=== PATIENT | male | born 1980 | race Caucasian/White ===

== ENCOUNTER 2018-08-22 21:23 | Inpatient (IN) | payer SELFPAY ==
--- NOTE | 2018-08-22 21:42 | PDOC ---
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 The past last had alcohol this AM. He normally drinks beer and rum and cannot provide a full history of how much he drinks. He admits to some nausea at bedside. Per EMS patient wsa hypoglycemic to 33, given glucose and up to 66 He denies chest pain, shortness of breath, abdominal pain, recent fever or illness. He has no other complaints at bedside. Cylinder Devalver: [id number] Past History - Past Medical History Allergies/Adverse Reactions: Allergies Allergy/AdvReac Type Severity Reaction Status Date / Time No Known Allergies Allergy Verified 08/22/18 21:40 Home Medications: Ambulatory Orders Aspirin [ASA -] 81 mg PO DAILY tab.chew 08/24/18 levETIRAcetam [Keppra -] 250 mg PO BID tablet 08/24/18 - Suicide/Smoking/Psychosocial Hx Smoking History: Unknown if ever smoked Have you smoked in the past 12 months: No Information on smoking cessation initiated: No Hx Alcohol Use: Yes Drug/Substance Use Hx: No (UNKNOWN) Review of Systems - Review of Systems Able to Perform ROS?: Yes Is the patient limited Malay proficient: No Constitutional: No: Chills, Diaphoresis, Fever HEENTM: No: Blurred Vision, Tinnitus Respiratory: No: Cough, Orthopnea, Shortness of Breath Cardiac (ROS): Yes: Lightheadedness. No: Chest Pain, Palpitations, Syncope ABD/GI: Yes: Nausea. No: Constipated, Diarrhea, Vomiting : No: Burning, Dysuria, Hematuria Musculoskeletal: No: Back Pain, Muscle Pain, Muscle Weakness Neurological: No: Headache, Numbness, Tingling *Physical Exam - Vital Signs Last Vital Signs Temp Pulse Resp BP Pulse Ox 97.6 F 93 H 20 126/73 98 08/22/18 21:40 08/22/18 21:40 08/22/18 21:40 08/22/18 21:40 08/22/18 21:40 - Physical Exam Comments: 08/22/18 22:55 GENERAL: AOx3, tired, tremulous appearing. HEAD: No signs of trauma, normocephalic, atraumatic EYES: EOMI, mild scleral icterus, ENT: oropharynx clear without exudates. Moist mucosa, tongue tremors NECK: Normal ROM, supple LUNGS: No distress, speaks full sentences, clear to auscultation bilaterally HEART: Regular rate and rhythm, normal S1 and S2, no murmurs, rubs or gallops, peripheral pulses normal and equal bilaterally. ABDOMEN: Soft, nontender, normoactive bowel sounds. No guarding, no rebound. No masses EXTREMITIES : Normal inspection, Normal range of motion, no edema. No clubbing or cyanosis. 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 The past last had alcohol this AM. He normally drinks beer and rum and cannot provide a full history of how much he drinks. He admits to some nausea at bedside. ED Course: Patient with likely alcohol withdrawal and hypoglycemia possible seizure, however descrbed as dizzy spell similar to prior episodes Discussed patient detoxing and going to rehab, the patient has gone to rehab before and does not desire to rehab current;y cbc, cmp, head CT banana bag, librium juice given for hypoglycemia en route EKG: normal sinus rhythm HR 83, no interval abnormalities, narrow QRS, ST and T wave segments and morphology normal. 08/23/18 01:32 labs with glucose of 61 juice given and 12.5gm d50 given IV second episode of hypoglycemia likely will need admission for etoh withdrawal 08/23/18 01:[address] and cervical c spine - negative 08/25/18 12:24 Patient discussed with mecdicine team who accetps patient *DC/Admit/Observation/Transfer Diagnosis at time of Disposition: Alcohol withdrawal - Discharge Dispostion Condition at time of disposition: Improved Decision to Admit order: Yes - Referrals - Patient Instructions - Post Discharge Activity
[2018-08-22] MEDS ORDERED: chlordiazePOXIDE HCL 25 MG CAPSULE PO ONE (21:43)
[2018-08-22] MEDS ORDERED: FOLIC ACID INJECTION - 1 MG, THIAMINE HCL 100 MG, MULTIVIT INJECTION ADULT 10 ML in SOD... IVPB ONE (21:43)
[2018-08-22] MEDS ORDERED: chlordiazePOXIDE HCL 25 MG CAPSULE ONE (22:56)
--- NOTE | 2018-08-22 23:47 | PDOC ---
Attending Attestation - HPI HPI: The patient is a 37 year old male (daily EtOh yser), with a significant PMH of alcoholism, chronic episodes of dizzy spells, withdrawal (last episode was 2 months ago), seizures who presents to the emergency department today s/p one episode of dizziness and nausea earlier today. 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 He admits to alcohol consumption earlier this morning. Patient notes he typically drinks rum and/or beer, but cannot dictate his consumption history. He endorses mild nausea while in the ED. As per EMS, patient was found post-ictal and hypoglycemic (at 33). He was given glucose prior to arrival (brought up to 66). HPI is limited secondary to patient being a poor historian. Clip Wrapper: [id number] The patient denies chest pain, shortness of breath, headache and dizziness. Denies fever, chills, vomit, diarrhea and constipation. Denies dysuria, frequency, urgency and hematuria. Allergies: NKA Past surgical history: None reported Social history: Daily EtOH user (1/5 per day) 08/22/18 23:50 - Physicial Exam PE: GENERAL: +Poor historian. +Tremulous. +Jaundice. +Disheveled, no external signs of trauma. Awake, alert, in no acute distress HEAD: No signs of trauma EYES: +Scleritic icterus. PERRLA, EOMI, conjunctiva clear ENT: +Mild tongue fasciculations. +Yellowing of the bases of the mouth. Auricles normal inspection, hearing grossly normal, nares patent, oropharynx clear without exudates. Moist mucosa NECK: Normal ROM, supple, no lymphadenopathy, JVD, or masses LUNGS: Breath sounds equal, clear to auscultation bilaterally. No wheezes, and no crackles HEART: Regular rate and rhythm, normal S1 and S2, no murmurs, rubs or gallops ABDOMEN: +Couldnt palpate liver below the border of the ribs. Soft, nontender, normoactive bowel sounds. No guarding, no rebound. No masses EXTREMITIES: Normal range of motion, no edema. No clubbing or cyanosis. No cords, erythema, or tenderness NEUROLOGICAL: Cranial nerves II through XII grossly intact. Normal speech, normal gait SKIN: +Jaundice. Warm, Dry, normal turgor, no rashes or lesions noted. 08/22/18 23:50 - Medical Decision Making EXAM: CT Head without contrast Impression: No acute brain parenchymal abnormality. No hemorhage, mass or acute territorial infarct. Minimal atrophy. Chronic lacunar infarct left basal ganglia. Minimal mucoperiosteal thickening paranasal sinuses. Visualized mastoid air cells clear. Reported by: Dee Dee Macias MD. 08/23/2018 01:13 Documentation prepared by DANITZA Lucia, acting as medical chemist for Torrie Cannon DO. 08/23/18 01:24 <Francisca Osullivan - Last Filed: 08/23/18 01:24> - Resident Resident Name: Lizet Roy - ED Attending Attestation I have performed the following: I have examined & evaluated the patient, The case was reviewed & discussed with the resident, I agree w/resident's findings & plan, Exceptions are as noted - Medical Decision Making 08/22/18 23:42 I, Dr. Torrie Cannon, , attest that this document has been prepared under my direction and personally reviewed by me in its entirety. I further attest, that it accurately reflects all work, treatment, procedures and medical decision -making performed by me. 08/22/18 23:42 a/p: 37yo male biba after being found with loc and a low glucose -pt with daily etoh use, hx of vodka 1 fifth per day -last drink was yesterday morning -pt tremulous and mild tongue fasciculations -pt also mildly jaundiced -will send labs, ekg, cxr, head ct, librium, pt with mild alcohol withdrawal and an episode of LOC today vs seizure from etoh withdrawal 08/23/18 01:[address] on head [address], no acute findings 08/23/18 01:31 pt still tremulous repeat glucose 61 given juice and 1/2 amp d50 2nd episode of hypoglycemia today denies taking any meds or insulin 08/23/18 01:32 microblog sent to [facility] for admission for etoh withdrawal <Torrie Cannon - Last Filed: 08/23/18 01:32> Heart Score/ECG Review - ECG Intrepretation Comment:: 08/22/18 23:42 sinus at 83, nl axis, nl interval, no acute st/t wave findings <Torrie Cannon - Last Filed: 08/23/18 01:32>
[2018-08-23 00:36] LABS: BASO % 0.4 % (0-2.0); HEMATOCRIT 31.3 % (35.4-49); HEMOGLOBIN 10.3 GM/dL (11.7-16.9); LYMPH % 9.3 % (8-40); MCH 29.4 pg (25.7-33.7); MCHC 32.9 g/dl (32.0-35.9); MEAN CELL VOLUME 89.4 fl (80-96); MEAN PLT VOLUME 7.5 fl (7.5-11.1); MONO % 10.6 % (3.8-10.2); NEUT % 79.7 % (42.8-82.8); PLATELET COUNT 152 K/MM3 (134-434); RDW 17.1 % (11.9-15.9); WHITE BLOOD COUNT 5.9 K/mm3 (4.0-10.0)
[2018-08-23 01:14] LABS: ALBUMIN 3.9 g/dl (3.4-5.0); ALK PHOS 92 U/L (45-117); ANION GAP 11 MMOL/L (8-16); BILIRUBIN,TOTAL 0.7 mg/dL (0.2-1); BLOOD UREA NITROGEN 13 mg/dL (7-18); CALCIUM 8.3 mg/dL (8.5-10.1); CHLORIDE 98 mmol/L (98-107); CO2 22 mmol/L (21-32); CREATININE 0.6 mg/dL (0.55-1.3); GLUCOSE,RANDOM 61 mg/dL (74-106); POTASSIUM 3.9 mmol/L (3.5-5.1); SGOT/AST 239 U/L (15-37); SGPT/ALT 87 U/L (13-61); SODIUM 131 mmol/L (136-145); TOT PROT 7.4 g/dl (6.4-8.2)
[2018-08-23] MEDS ORDERED: DEXTROSE 50%-WATER - 25 GM/50 ML VIAL IVPUSH ONE ×2 (01:25)
[2018-08-23] MEDS ORDERED: DEXTROSE 50%-WATER - 25 GM/50 ML VIAL ONE (01:27)
--- NOTE | 2018-08-23 01:36 | HP ---
CHIEF COMPLAINT: LOC PCP:none HISTORY OF PRESENT ILLNESS: The patient is a 37 year old male (daily EtOh yser), with a significant PMH of alcoholism, chronic episodes of dizzy spells, withdrawal (last episode was 3 months ago), seizures who presents to the emergency department today s/p one episode of dizziness and nausea earlier today. 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 He admits to alcohol consumption earlier this morning. Patient notes he typically drinks rum and/or beer, but cannot dictate his consumption history. He endorses mild nausea while in the ED. As per EMS, patient was found post-ictal and hypoglycemic (at 33). He was given glucose prior to arrival (brought up to 66). HPI is limited secondary to patient being a poor historian. The patient denies chest pain, shortness of breath, headache and dizziness. Denies fever, chills, vomit, diarrhea and constipation. reports some times buring sensation when he pass urine reports anxiety regarding his job and his family he lives with friend he sleeps with mouth open ER course was notable for: (1)cbc, cmp (2)Head CT (3) Recent Travel: denies PAST MEDICAL HISTORY: he mentioned HTN and DM but he has never been on any ,edsand he done have PCP PAST SURGICAL HISTORY: NOne Social History: Smoking:one cigaret aday for one year ([facility] ) Alcohol:daily beer and vodka 1/2 Pint Drugs: denies Family History:Asthma Allergies No Known Allergies Allergy (Verified 08/22/18 21:40) HOME MEDICATIONS: REVIEW OF SYSTEMS CONSTITUTIONAL: Absent: fever, chills, diaphoresis, generalized weakness, malaise, loss of appetite, weight change HEENT: Absent: rhinorrhea, nasal congestion, throat pain, throat swelling, difficulty swallowing, mouth swelling, ear pain, eye pain, visual changes CARDIOVASCULAR: Absent: chest pain, syncope, palpitations, irregular heart rate, lightheadedness , peripheral edema RESPIRATORY: Absent: cough, shortness of breath, dyspnea with exertion, orthopnea, wheezing, stridor, hemoptysis GASTROINTESTINAL: Absent: abdominal pain, abdominal distension, nausea, vomiting, diarrhea, constipation, melena, hematochezia GENITOURINARY: Absent: dysuria, frequency, urgency, hesitancy, hematuria, flank pain, genital pain MUSCULOSKELETAL: Absent: myalgia, arthralgia, joint swelling, back pain, neck pain SKIN: Absent: rash, itching, pallor HEMATOLOGIC/IMMUNOLOGIC: Absent: easy bleeding, easy bruising, lymphadenopathy, frequent infections ENDOCRINE: Absent: unexplained weight gain, unexplained weight loss, heat intolerance, cold intolerance NEUROLOGIC: Absent: headache, focal weakness or paresthesias, dizziness, unsteady gait, seizure, mental status changes, bladder or bowel incontinence PSYCHIATRIC: Absent: anxiety, depression, suicidal or homicidal ideation, hallucinations. PHYSICAL EXAMINATION Vital Signs - 24 hr 08/22/18 21:40 Temperature 97.6 F Pulse Rate 93 H Respiratory 20 Rate Blood Pressure 126/73 O2 Sat by Pulse 98 Oximetry (%) GENERAL: AAOx3 in NAD , flushed face HEAD: NC/AT EYES: EOMI, Conjunctiva clear, ENT: dry mucous membrane NECK: Supple, no JVD LUNGS: CTA B/L, no crackles no wheezing no accessory muscle use. HEART: RRR, NSR, normal s1, s2, no M/R/G ABDOMEN: Soft, ND, NT, +BS 4 Q, no CVA Tenderness LOWER EXTREMITIES: no edema, +2DP pulse, NEUROLOGICAL: No focal deficit. Normal speech. gait not observed.hand tremor , sensation intact , strength 5/5 upper and lower ext proximal and distal PSYCHIATRIC: Cooperative. Good eye contact. Appropriate mood and affect. SKIN: Warm, dry, Laboratory Results - last 24 hr 08/23/18 08/23/18 00:04 00:04 WBC 5.9 RBC 3.50 L Hgb 10.3 L Hct 31.3 L MCV 89.4 MCH 29.4 MCHC 32.9 RDW 17.1 H Plt Count 152 MPV 7.5 Absolute Neuts (auto) 4.7 Neutrophils % 79.7 Lymphocytes % 9.3 Monocytes % 10.6 H Eosinophils % 0.0 Basophils % 0.4 Nucleated RBC % 0 Sodium 131 L Potassium 3.9 Chloride 98 Carbon Dioxide 22 Anion Gap 11 BUN 13 Creatinine 0.6 Creat Clearance w eGFR 149.99 Random Glucose 61 L Calcium 8.3 L Total Bilirubin 0.7 AST 239 H ALT 87 H Alkaline Phosphatase 92 Total Protein 7.4 Albumin 3.9 CBC, BMP 08/23/18 00:04 08/23/18 00:04 ASSESSMENT/PLAN: 37 year old male with no pmhx presented with dizziness and loc admitted for alcohol abuse and for syncope work up as this is second episode in last 3 months # Syncope likley due to alcohol abuse vs another etiology # Alcoholic dependence /withdrwal ciwa 10 #normocytic normochromic Anemia likely due to alcohol abuse # Hyponatremia # Hypoglycemia due to alcohol and low intake /R.O DM # HTN???never measured and never on meds will monitor #tansaminitis 2/2 Alcoholic abuse ASt> ALt more than 2:1 trend # R.o rhabdomyolyis CK 1200 trend , IV fluids NS @ 125 CC/hr plan * will work him for syncope , monitor in tele to r.o arrhythmia , trop, EKG NSR , Head Ct without contrast , Echo in Am , Carotid doppler , thsi is 2nd episode in 3 month last visit was to [facility] for same reason * pt is heavy drinkr , drink every day, 5 beers and 1/2 pont of Vodka , last drink yesterday , pt has hand tremor from withdrawal and flush face * Thiamin , folic acid , Banan bag , Ativan protocol instead of libirium Protocol as pt has transminitis , addictions counselor about alcohol abstinence * NS @ 100 CC/hr * D5 was given in ED due to hypoglycemia due to alcohol, , continue to monitor BGM, feed pt , D50 if needed , A1c as pt claimed he has DM but not on any meds * Anemia likely due to alcohol abuse , follow results B12 , folic acid , FE, TIBC , And Ferretin , monitor H/H , no active bleeding * Fall precautions , monitor for withdrawal symptoms # FEN * banana bag , NS @ 125 CC/hr * monitor lytes * regular diet # Proph * SCDS, Lovenoc 40 SQ daily * PPI 20 daily #Dispo * Tele inpatient # Full code Visit type - Emergency Visit Emergency Visit: Yes ED Registration Date: 08/23/18 Care time: The patient presented to the Emergency Department on the above date and was hospitalized for further evaluation of their emergent condition. - New Patient This patient is new to me today: Yes Date on this admission: 08/23/18 - Critical Care Critical Care patient: No
--- NOTE | 2018-08-23 02:05 | PN ---
Teaching Attending Note Name of Resident: Eligio Priest ATTENDING PHYSICIAN STATEMENT I saw and evaluated the patient. I reviewed the resident's note and discussed the case with the resident. I agree with the resident's findings and plan as documented. 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 May have passed out, but is not sure. He last had alcohol this AM. He normally drinks beer and rum and cannot provide a full history of how much he drinks. He admits to some nausea at bedside. Per EMS patient was hypoglycemic to 33, given glucose and it went up to 66. May have also passed out one other time last year. He denies chest pain, shortness of breath, abdominal pain, recent fever or illness. Denies use of illicit drugs. OBJECTIVE: Alert and face is flushed and he is tremulous Vital Signs Period Temp Pulse Resp BP Sys/Antoine Pulse Ox Last 24 Hr 97.6 F 93 20 126/73 98 HEENT: No Jaundice, eye redness or discharge, PERRLA, EOMI. Normocephalic, atraumatic. External ears are normal and hearing is grossly intact. No nasal discharge. Neck: Supple, nontender. No palpable adenopathy or thyromegaly. No JVD Chest: Good effort. Clear to auscultation and percussion. Heart: Regular. No S3, rub or murmur Abdomen: Not distended, soft, nontender and no HSM. No rebound or guarding. Normal bowel sounds. Ext: Peripheral pulses intact. No leg edema. Skin: Warm and dry. No petechiae, rash or ecchymosis. Neuro: Alert. Oriented x3. Tremulous. CN 2-12 grossly intact. Sensation grossly intact in all four extremities and DTR are symmetric. Psych: Appropriate mood and affect. Poor insight. Current Medications Generic Name Dose Route Start Last Admin Trade Name Freq PRN Reason Stop Dose Admin Chlordiazepoxide HCl 10 mg 08/25/18 21:00 Librium - PO 08/26/18 21:00 Q12H PRN Signs/symptoms of Withdrawal Chlordiazepoxide HCl 10 mg 08/23/18 03:37 Librium - PO 08/25/18 21:00 Q8H PRN Signs/symptoms of Withdrawal Chlordiazepoxide HCl 25 mg 08/23/18 21:00 Librium - PO 08/24/18 13:01 Q8H [facility] Chlordiazepoxide HCl 15 mg 08/24/18 21:00 Librium - PO 08/25/18 13:01 Q8H [facility] Chlordiazepoxide HCl 10 mg 08/25/18 21:00 Librium - PO 08/26/18 21:01 Q8H [facility] Enoxaparin Sodium 40 mg 08/23/18 10:00 Lovenox - SQ DAILY [facility] Folic Acid 1 mg 08/23/18 10:00 Folic Acid - PO DAILY [facility] Folic Acid 1 mg/ Thiamine HCl 1,000 mls @ 125 mls/hr 08/22/18 21:43 08/22/18 23:39 100 mg/ Multivitamins/Minerals IVPB 08/23/18 05:42 125 mls/hr 10 ml/ Sodium Chloride ONCE ONE Administration Pantoprazole Sodium 20 mg 08/23/18 10:00 Protonix - PO DAILY [facility] Thiamine HCl 200 mg 08/23/18 10:00 Vitamin B1 Injection - IVPB DAILY [facility] Home Medications Medication Instructions Recorded NK [No Known Home Medication] 08/23/18 Abnormal Lab Results 08/23/18 08/23/18 00:04 00:04 RBC 3.50 L Hgb 10.3 L Hct 31.3 L RDW 17.1 H Monocytes % 10.6 H Sodium 131 L Random Glucose 61 L Calcium 8.3 L AST 239 H ALT 87 H ASSESSMENT AND PLAN: 1. Alcohol intoxication/Syncope - Unclear whether he passed out from intoxication or indeed this was "true syncope". Will get blood alcohol level, urine toxicology and head CT. Results of C spine CT pending. Will monitor on telemtry and get carotid doppler and ECHO. EKG shows NSR with no acute ST-T wave changes. Monitor BP closely to ascertain need for drug therapy and check HbA1c. Has features of rhabdomyolysis. Will hydrate with IV LR, monitor calcium and phosphate levels and trend CPK. Trend LFTs and do hepatitis serology. Implement CIWA ativan alcohol withdrawal protocol. Do neurochecks and implement seizure, fall and aspiration precautions. Treat with thiamine and folic acid and monitor electrolytes (Ca,Mg,K,P). Counseled patient about abstaining from alcohol and will refer to alcohol detox upon discharge. 2. Tobacco Use Counseled on risks associated with tobacco use. We will provide patient all the necessary assistance to facilitate smoking cessation and prescribe Nicotine patch. 3. Anemia - Likely multifactorial. Will do basic anemia work up including serial stool guaiacs, reticulocyte count, iron studies, Vitamin b12 and folate levels. 4. DVT prophylaxis - Lovenox 40 mg SQ q 24 hours. 5. Advance directives - Full code
[2018-08-23] MEDS ORDERED: chlordiazePOXIDE HCL 10 MG CAPSULE PO PRN (03:37)
[2018-08-23 05:06] LABS: URINE APPEARANCE CLEAR; URINE BILIRUBIN NEGATIVE (NEGATIVE); URINE COLOR YELLOW; URINE GLUCOSE (UA) NEGATIVE (NEGATIVE); URINE KETONE 1+ (NEGATIVE); URINE LEUK ESTERASE NEGATIVE (NEGATIVE); URINE NITRITE NEGATIVE (NEGATIVE); URINE PROTEIN NEGATIVE (NEGATIVE); URINE UROBILINOGEN 0.2 mg/dL (0.2-1.0)
[2018-08-23 05:26] LABS: COCAINE, UR NEGATIVE ng/ml (CUTOFF=300); METHADONE, UR NEGATIVE ng/ml (CUTOFF=300); OPIATES, URI NEGATIVE ng/ml (CUTOFF=300); PHENCYCLIDINE,URINE NEGATIVE ng/ml (CUTOFF=25); URINE AMPHETAMINES NEGATIVE ng/ml (CUTOFF=500); URINE BARBITURATES NEGATIVE ng/ml (CUTOFF=200); URINE BENZODIAZEPINES NEGATIVE ng/ml (CUTOFF=200)
[2018-08-23] MEDS ORDERED: LORazepam 0.5 MG TABLET PO PRN (05:46)
[2018-08-23] MEDS: SODIUM CHLORIDE 1,000 ML IV SCH (06:30)
[2018-08-23] MEDS ORDERED: LORazepam 0.5 MG TABLET ONE ×3 (06:32→13:47)
[2018-08-23] MEDS: LORazepam 0.5 MG TABLET PO SCH ×5 (06:37→21:29)
--- NOTE | 2018-08-23 09:59 | PN ---
Addendum entered and electronically signed by Aylin Ordaz, 13:40: Addendum: patient found to have new onset right lower facial droop with dysarthia- stat head CT ordered Original Note: Physical Exam: SUBJECTIVE: Patient seen and examined at bedside- no acute events overnight; patient states that he is having slight dizziness however it is improved; he denies any CP/SOB/N/V currently has a CIWA of 7 OBJECTIVE: Vital Signs Period Temp Pulse Resp BP Sys/Antoine Pulse Ox Last 24 Hr 97.6 F-98.4 F 77-93 20 121-126/72-73 98-100 GENERAL: The patient is awake, alert, and fully oriented, in no acute distress. EYES: PEERLA: EOMI; no scleral icteurs ENT: no tongue fasiculations NECK: no JVD; no lymphadenopathy LUNGS: CTA B/L; no rales, rhonchi or wheezing. HEART: Regular rate and rhythm, S1, S2 without murmur, rub or gallop. ABDOMEN: Soft, nontender, nondistended, normoactive bowel sounds, no guarding, no rebound, no hepatosplenomegaly, no masses. EXTREMITIES: 2+ pulses, warm, well-perfused, no edema; tremors in B/L upper extremities . PSYCH: Normal mood, normal affect. SKIN: Warm, dry, normal turgor, no rashes or lesions noted Laboratory Results - last 24 hr 08/23/18 08/23/18 08/23/18 00:04 00:04 04:15 WBC 5.9 RBC 3.50 L Hgb 10.3 L Hct 31.3 L MCV 89.4 MCH 29.4 MCHC 32.9 RDW 17.1 H Plt Count 152 MPV 7.5 Absolute Neuts (auto) 4.7 Neutrophils % 79.7 Lymphocytes % 9.3 Monocytes % 10.6 H Eosinophils % 0.0 Basophils % 0.4 Nucleated RBC % 0 Sodium 131 L Potassium 3.9 Chloride 98 Carbon Dioxide 22 Anion Gap 11 BUN 13 Creatinine 0.6 Creat Clearance w eGFR 149.99 Random Glucose 61 L Calcium 8.3 L Magnesium Total Bilirubin 0.7 AST 239 H ALT 87 H Alkaline Phosphatase 92 Creatine Kinase Creatine Kinase Index CK-MB (CK-2) Troponin I Total Protein 7.4 Albumin 3.9 Urine Color Urine Appearance Urine pH Ur Specific [place] Urine Protein Urine Glucose (UA) Urine Ketones Urine Blood Urine Nitrite Urine Bilirubin Urine Urobilinogen Ur Leukocyte Esterase Opiates Screen Methadone Screen Barbiturate Screen Phencyclidine Screen Ur Amphetamines Screen MDMA (Ecstasy) Screen Benzodiazepines Screen Cocaine Screen U Marijuana (THC) Screen Alcohol, Quantitative < 3.0 08/23/18 08/23/18 08/23/18 04:15 04:15 04:55 WBC RBC Hgb Hct MCV MCH MCHC RDW Plt Count MPV Absolute Neuts (auto) Neutrophils % Lymphocytes % Monocytes % Eosinophils % Basophils % Nucleated RBC % Sodium Potassium Chloride Carbon Dioxide Anion Gap BUN Creatinine Creat Clearance w eGFR Random Glucose Calcium Magnesium 2.0 Total Bilirubin AST ALT Alkaline Phosphatase Creatine Kinase 1272 H Creatine Kinase Index 0.9 CK-MB (CK-2) 12.7 H Troponin I 0.04 Total Protein Albumin Urine Color Urine Appearance Urine pH Ur Specific [place] Urine Protein Urine Glucose (UA) Urine Ketones Urine Blood Urine Nitrite Urine Bilirubin Urine Urobilinogen Ur Leukocyte Esterase Opiates Screen Negative Methadone Screen Negative Barbiturate Screen Negative Phencyclidine Screen Negative Ur Amphetamines Screen Negative MDMA (Ecstasy) Screen Negative Benzodiazepines Screen Negative Cocaine Screen Negative U Marijuana (THC) Screen Negative Alcohol, Quantitative 08/23/18 04:55 WBC RBC Hgb Hct MCV MCH MCHC RDW Plt Count MPV Absolute Neuts (auto) Neutrophils % Lymphocytes % Monocytes % Eosinophils % Basophils % Nucleated RBC % Sodium Potassium Chloride Carbon Dioxide Anion Gap BUN Creatinine Creat Clearance w eGFR Random Glucose Calcium Magnesium Total Bilirubin AST ALT Alkaline Phosphatase Creatine Kinase Creatine Kinase Index CK-MB (CK-2) Troponin I Total Protein Albumin Urine Color Yellow Urine Appearance Clear Urine pH 6.0 Ur Specific [place] 1.007 L Urine Protein Negative Urine Glucose (UA) Negative Urine Ketones 1+ H Urine Blood Negative Urine Nitrite Negative Urine Bilirubin Negative Urine Urobilinogen 0.2 Ur Leukocyte Esterase Negative Opiates Screen Methadone Screen Barbiturate Screen Phencyclidine Screen Ur Amphetamines Screen MDMA (Ecstasy) Screen Benzodiazepines Screen Cocaine Screen U Marijuana (THC) Screen Alcohol, Quantitative Active Medications Generic Name Dose Route Start Last Admin Trade Name Freq PRN Reason Stop Dose Admin Enoxaparin Sodium 40 mg 08/23/18 10:00 Lovenox - SQ DAILY CARLOS Folic Acid 1 mg 08/23/18 10:00 Folic Acid - PO DAILY CARLOS Sodium Chloride 1,000 mls @ 125 mls/hr 08/23/18 05:30 08/23/18 06:30 Normal Saline - IV 125 mls/hr ASDIR CARLOS Administration Lorazepam 0.5 mg 08/25/18 05:00 Ativan - PO 08/26/18 05:01 Q6H CARLOS Lorazepam 0.5 mg 08/25/18 05:00 Ativan - PO 08/26/18 05:00 Q4H PRN Symptoms of Withdrawal Lorazepam 1 mg 08/24/18 05:00 Ativan - PO 08/24/18 23:01 0500,1100,1700,2300 CARLOS Lorazepam 1 mg 08/23/18 05:46 Ativan - PO 08/25/18 05:00 Q4H PRN Symptoms of Withdrawal Lorazepam 1 mg 08/23/18 06:15 08/23/18 06:37 Ativan - PO 08/23/18 22:01 1 mg Q4HPO CARLOS Administration Pantoprazole Sodium 20 mg 08/23/18 10:00 Protonix - PO DAILY CARLOS Thiamine HCl 200 mg 08/23/18 10:00 Vitamin B1 Injection - IVPB DAILY CARLOS ASSESSMENT/PLAN: 37 y.o male with no PMH presented to the ED with complaints of dizziness/LOC admitted for alcohol abuse and syncope workup as this was his second episode in the last 3 months #Syncope EKG was NSR head CT negative for any acute pathology echo pending will obtain records from [facility] where he was admitted for same reason dopplers pending orthostatic vitals NS @100 fall precautions #Alcohol abuse currently CIWA of 7 patient has had alcohol withdrawal seizures in past ativan protocol, thiamine/folate/ banana bag monitor CIWA and withdrawal symptoms #Transaminitis alcoholic picture AST: ALT 239:97 #Anemia likely due to chronic alcohol use f/u iron studies F/E/N NS @100 monitor electrolytes regualr diet Problem List - Problems (1) Syncope Code(s): R55 - SYNCOPE AND COLLAPSE (2) Anemia Code(s): D64.9 - ANEMIA, UNSPECIFIED (3) Alcohol withdrawal Code(s): F10.239 - ALCOHOL DEPENDENCE WITH WITHDRAWAL, UNSPECIFIED Visit type - Emergency Visit Emergency Visit: Yes ED Registration Date: 08/23/18 Care time: The patient presented to the Emergency Department on the above date and was hospitalized for further evaluation of their emergent condition. - New Patient This patient is new to me today: Yes Date on this admission: 08/23/18 - Critical Care Critical Care patient: No
[2018-08-23] MEDS: THIAMINE HCL 200 MG/2 ML VIAL IVPB SCH (10:52)
[2018-08-23] MEDS: FOLIC ACID 1 MG TABLET (FP) PO SCH (10:52)
[2018-08-23] MEDS: PANTOPRAZOLE 20 MG TABLET (FP) PO SCH (10:52)
[2018-08-23] MEDS: ENOXAPARIN NA (PORCINE) 40 MG/0.4 ML DISP.SYRIN SQ SCH (10:52)
[2018-08-23 11:05] LABS: BASO % 0.6 % (0-2.0); EOS % 0.3 % (0-4.5); HEMATOCRIT 31.7 % (35.4-49); HEMOGLOBIN 10.4 GM/dL (11.7-16.9); LYMPH % 17.6 % (8-40); MCH 29.4 pg (25.7-33.7); MEAN CELL VOLUME 89.1 fl (80-96); MEAN PLT VOLUME 7.9 fl (7.5-11.1); MONO % 18.2 % (3.8-10.2); NEUT % 63.3 % (42.8-82.8); PLATELET COUNT 142 K/MM3 (134-434); RBC 3.55 M/mm3 (4.00-5.60); RDW 16.7 % (11.9-15.9)
[2018-08-23 11:16] LABS: INR 1.01 (0.83-1.09); PROTHROMBIN TIME (PATIENT) 11.9 SEC (9.7-13.0)
[2018-08-23 11:19] LABS: ACTIVATED PTT 32.1 SECONDS (25.2-36.5)
[2018-08-23 11:57] LABS: ALBUMIN 3.7 g/dl (3.4-5.0); ALK PHOS 83 U/L (45-117); ANION GAP 11 MMOL/L (8-16); BLOOD UREA NITROGEN 11 mg/dL (7-18); CALCIUM 8.3 mg/dL (8.5-10.1); CHLORIDE 101 mmol/L (98-107); CHOLESTEROL 187 mg/dL (50-200); CO2 24 mmol/L (21-32); CREATININE 0.7 mg/dL (0.55-1.3); GLUCOSE,RANDOM 100 mg/dL (74-106); HDL CHOLESTEROL 112 mg/dL (40-60); PHOSPHOROUS 2.4 mg/dL (2.5-4.9); POTASSIUM 3.9 mmol/L (3.5-5.1); SGOT/AST 141 U/L (15-37); SGPT/ALT 75 U/L (13-61); SODIUM 136 mmol/L (136-145); TOT PROT 6.8 g/dl (6.4-8.2); TRIGLYCERIDES 62 mg/dL (0-150)
--- NOTE | 2018-08-23 12:13 | EKG ---
Test Reason : Blood Pressure : / mmHG Vent. Rate : 071 BPM Atrial Rate : 071 BPM P-R Int : 152 ms QRS Dur : 112 ms QT Int : 424 ms P-R-T Axes : 063 075 058 degrees QTc Int : 460 ms NORMAL SINUS RHYTHM NORMAL ECG WHEN COMPARED WITH ECG OF 22-AUG-2018 23:13, NO SIGNIFICANT CHANGE WAS FOUND Confirmed by MAMTA PANCHAL MD ([id number]) on 08/23/2018 12:13:29 PM Referred By: Confirmed By:MAMTA PANCHAL MD
--- NOTE | 2018-08-23 12:23 | EKG ---
Test Reason : Blood Pressure : / mmHG Vent. Rate : 083 BPM Atrial Rate : 083 BPM P-R Int : 148 ms QRS Dur : 100 ms QT Int : 374 ms P-R-T Axes : 068 080 062 degrees QTc Int : 439 ms NORMAL SINUS RHYTHM NORMAL ECG NO PREVIOUS ECGS AVAILABLE Confirmed by ABDULKADIR WINKLER, MAMTA ([id number]) on 08/23/2018 12:23:33 PM Referred By: Confirmed By:MAMTA PANCHAL MD
[2018-08-23] MEDS: ASPIRIN 81 MG CHEWABLE TABLETS PO SCH (13:47)
--- NOTE | 2018-08-23 14:16 | PN ---
Teaching Attending Note Name of Resident: Aylin Ordaz ATTENDING PHYSICIAN STATEMENT I saw and evaluated the patient. I reviewed the resident's note and discussed the case with the resident. I agree with the resident's findings and plan as documented. SUBJECTIVE: He denies any pain. Reports light headedness yesterday. No vertigo. No nausea or vomiting. He thinks he had LOC and hit his R sided head. last seizure he had was last year . cont to drink OBJECTIVE: NAD, Awake, alert oriented x 3. CV: RRR, no MRG lungs: CTAB Ext : no edema Abd: soft, NT, Nd , NLBS . neuro: EOMI, round equal pupils, reactive to light , R lower facial droop with smiling. nl facial sensation . Nl Visual field. no nystagmus strength 5/5 in upper and lower ext proximally and distally. No drift. No dysmetria. nl heel to celis . reflexes 2+ knee jerk and biceps b/l. nl sesnation to light touch b/l . NIHSS 2 ( mild dysarthria and mild R L facial droop) ASSESSMENT AND PLAN: 37 y/o male with h/o ETOH abuse, untreated HTN and withdrawal seizures who presented with dizziness ( light headedness and syncope ) . 1- Code gregory called during evaluation. 1 pm, due to R lower facial droop. pt neuro exam was done by residents at 8 am with no facial droop or dysarthria NIHSS [address] of head neuro called by resident will get MRI if CT is negative CUS with no stenosis echo pending 2- ETOH WD. ativan protocol due to LFTs abn thiamine and folate received IV thiamine in ER 3- Alcoholic hepatitis : DF 0.2 . no need for treatment . 4- Hypoglycemia : likely due to alcohol use and poor nutrition. A1c noted. monitor 5- Syncope: likely due to alcohol intoxication. tele . eKg with sinus rhythm , and J point elevation. Qtc 439. head CT with scalp edema but no ICH . dispo: Tele floor
--- NOTE | 2018-08-23 14:22 | PN.NIHSS ---
NIH Stroke Scale - Last Known Well Date/Time & Onset Date Last Known Well: 08/23/18 Time Last Known Well: 08:00 - Initial Evaluation Level of consciousness: Alert Ask patient the month and their age: Answers both correctly Ask patient to open & close eyes; make fist and let go: Obeys both correctly Best gaze (horizontal eye movement): Normal Visual field testing: No visual field loss Facial paresis (Show teeth/raise eyebrows/close eyes tight): Minor paralysis ( flattened nasolabial fold, asymmetry on smiling) (patient was given a baby ASA and taken for stat head CT) Motor Function: Left Arm: Normal Motor Function: Right Arm: Normal (extends arm 90 (or 45) degrees for 10 seconds without drift Motor Function: Left Leg: Normal (extends leg 30 degrees for 5 seconds without drift) Motor Function: Right Leg: Normal (extends leg 30 degrees for 5 seconds without drift) Limb Ataxia: No ataxia Sensory(Use pinprick test arms,legs,trunk,face/side to side): Normal Best language (Describe picture, name items, read sentences): No Aphasia Dysarthria (read several words): Mild to moderate slurring of words Extinction and Inattention: No abnormality - Total Score NIH Stroke Scale Score: 2
--- NOTE | 2018-08-23 14:37 | ECHO ---
Name: LETICIA DOMINGUEZRON Exam:Adult Echocardiogram Study Date: 08/23/2018 09:31 AM Age: 37 yrs Reason For Study: SYNCOPE Height: 66 in Weight: 150 lb BSA: 1.8 m2 MMode/2D Measurements & Calculations IVSd: 0.88 cm Ao root diam: 3.0 cm LVIDd: 5.4 cm LA dimension: 3.0 cm LVIDs: 3.4 cm LVPWd: 0.80 cm EDV(Teich): 140.7 ml LVOT diam: 2.4 cm ESV(Teich): 47.0 ml LAV (MOD-bp): 45.2 ml Doppler Measurements & Calculations MV E max oliverio: 42.7 cm/sec Ao V2 max: 104.5 cm/sec MV A max oliverio: 73.7 cm/sec Ao max P.4 mmHg MV E/A: 0.58 MV dec time: 0.15 sec ALYSON(V,D): 3.4 cm2 LV V1 max P.6 mmHg TR max oliverio: 198.2 cm/sec LV V1 max: 81.0 cm/sec TR max P.8 mmHg PA V2 max: 109.9 cm/sec Med Peak E' Oliverio: 8.6 cm/sec PA max P.8 mmHg Med E/e': 5.0 Lat Peak E' Oliverio: 13.8 cm/sec Lat E/e': 3.1 PI Vmax: 169.7 cm/sec Procedure A two-dimensional transthoracic echocardiogram with color flow and Doppler was performed. Left Ventricle The left ventricular size, thickness and function are normal. The left ventricular ejection fraction is normal. The left ventricular wall motion is normal. Right Ventricle The right ventricle is normal in size and function. Atria Normal left and right atrial size and function. Mitral Valve There is mild mitral valve thickening. There is no mitral valve stenosis. There is trace mitral regur gitation. Tricuspid Valve The tricuspid valve is normal in structure and function. There is no tricuspid stenosis. There is tra ce tricuspid regurgitation. Right ventricular systolic pressure is normal. Aortic Valve The aortic valve is normal in structure and function. No hemodynamically significant valvular aortic stenosis. No aortic regurgitation is present. Pulmonic Valve The pulmonic valve is not well visualized. There is no pulmonic valvular stenosis. Mild pulmonic valv ular regurgitation. Great Vessels The aortic root is normal size. Pericardium/Pleura There is no pericardial effusion. Interpretation Summary The left ventricular size, thickness and function are normal The left ventricular ejection fraction is normal. The left ventricular wall motion is normal. There is trace tricuspid regurgitation. Right ventricular systolic pressure is normal. There is trace mitral regurgitation. MD Manny Lord 08/23/2018 02:36 PM
[2018-08-23 16:07] VITALS: BMI 21.5
[2018-08-23] MEDS ORDERED: PNEUMOC 13-VAL CONJ-DIP CRM/PF 0.5 ML DISP.SYRIN IM ONE (16:07)
--- NOTE | 2018-08-23 16:08 | CON.NEURO ---
Consult Consult Specialty:: Serena Referred by:: PCP - History of Present Illness History of Present Illness: 37-year-old right-handed man with history of alcohol abuse presents to the hospital for detox patient was complaining of headache and neck pain patient was getting evaluated today when he had a sudden onset of difficulty with the right facial droop stroke protocol was initiated with was initiated initial NIH stroke scale was 2 patient had a CAT scan repeat today which showed no evidence of acute pathology. No report of any recent travel patient is a poor historian and so the patient in the emergency room patient was not a candidate for TPA last seen normal was 8 AM stroke protocol was initiated at 1:34 PM - History Source History Provided By: Medical Record Limitations to Obtaining History: Clinical Condition - Alcohol/Substance Use Hx Alcohol Use: Yes - Smoking History Smoking history: Unknown if ever smoked Have you smoked in the past 12 months: No Home Medications - Allergies Allergies/Adverse Reactions: Allergies Allergy/AdvReac Type Severity Reaction Status Date / Time No Known Allergies Allergy Verified 08/22/18 21:40 - Home Medications Home Medications: Ambulatory Orders NK [No Known Home Medication] 08/23/18 Family Disease History - Family Disease History Family History: Unable to Obtain Review of Systems Unable to obtain ROS, reason: qquestionable Physical Exam-Neuro Vital Signs: Vital Signs Temperature 97.9 F 08/23/18 14:00 Pulse Rate 72 08/23/18 14:00 Respiratory Rate 17 08/23/18 14:00 Blood Pressure 139/78 08/23/18 14:00 O2 Sat by Pulse Oximetry (%) 98 08/23/18 14:00 Constitutional: Yes: Well Nourished Neck: Yes: WNL Labs: CBC, BMP 08/23/18 10:26 08/23/18 10:26 INR, PTT INR 1.01 (0.83-1.09) 08/23/18 10:26 - Neuro Exam Level Of Consciousness: Yes: Oriented to Person, Oriented to Place Eyes: Yes: PERRLA Speech: Garbled Dominant Hand: Right Cranial Nerves II-XII Intact: Yes Gag: Present DTR's: 1+ Left Bicep, 1+ Right Bicep, 1+ Left Tricep, 1+ Right Tricep Imaging - Results Cat Scan: Image Reviewed Problem List - Problems (1) Syncope Assessment/Plan: syncope Questionable seizure or call induced, call withdrawal 1. Start the patient on Keppra 250 twice daily. 2. Seizure precautions. 3. Ativan when necessary. 4. Prolactin level. 5. EEG. Questionable stroke 11. MRI of the brain with no contrast. 2. Blood work including hypercoagulable with the workup Code(s): R55 - SYNCOPE AND COLLAPSE
[2018-08-23] MEDS ORDERED: FLU VACCINE QUAD 60 MCG/0.5 ML (MDV 18-19) IM ONE (18:00)
[2018-08-23] MEDS ORDERED: PNEUMOCOCCAL 23 VACCINE 0.5 ML VIAL IM ONE (18:00)
--- NOTE | 2018-08-23 19:37 | PN ---
[facility] CIWA - CIWA Score Nausea/Vomitin-No Nausea/No Vomiting Muscle Tremors: 7-Severe,w/o Arm Extended Anxiety: 4-Mod. Anxious/Guarded Agitation: 0-Normal Activity Paroxysmal Sweats: No Perspiration Orientation: 0-Oriented Tacttile Disturbances: 0-None Auditory Disturbances: 0-None Visual Disturbances: 2-Mild Sensitivity Headache: 0-None Present CIWA-Ar Total Score: 13 S Progress Note (SOAP) Subjective: 37 y.o. male referred for consultation 2/2 alcohol use , ptatient reports several beers and 2 1/2 pint bottles / day x many years , first age of use 11 , progressively increased to current amount, reports withdrawal seizures, blackouts, tremors if not drinking , starts drinking around 8 am , denies driving while intoxicated , latest use prior to this admission for dizziness and syncope . Seen by neurology for facial droop , started on Ativan protocol Active Medications Aspirin (Asa -) 81 mg PO DAILY [facility] Last Admin: 08/23/18 13:47 Dose: 81 mg Enoxaparin Sodium (Lovenox -) 40 mg SQ DAILY [facility] Last Admin: 08/23/18 10:52 Dose: 40 mg Folic Acid (Folic Acid -) 1 mg PO DAILY [facility] Last Admin: 08/23/18 10:52 Dose: 1 mg Sodium Chloride (Normal Saline -) 1,000 mls @ 125 mls/hr IV ASDIR [facility] Last Admin: 08/23/18 06:30 Dose: 125 mls/hr Levetiracetam (Keppra -) 250 mg PO BID [facility] Lorazepam (Ativan -) 0.5 mg PO Q6H [facility] Stop: 08/26/18 05:01 Lorazepam (Ativan -) 0.5 mg PO Q4H PRN PRN Reason: Symptoms of Withdrawal Stop: 08/26/18 05:00 Lorazepam (Ativan -) 1 mg PO 0500,1100,1700,2300 [facility] Stop: 08/24/18 23:01 Lorazepam (Ativan -) 1 mg PO Q4H PRN PRN Reason: Symptoms of Withdrawal Stop: 08/25/18 05:00 Lorazepam (Ativan -) 1 mg PO Q4HPO [facility] Stop: 08/23/18 22:01 Last Admin: 08/23/18 17:39 Dose: 1 mg Pantoprazole Sodium (Protonix -) 20 mg PO DAILY [facility] Last Admin: 08/23/18 10:52 Dose: 20 mg Thiamine HCl (Vitamin B1 Injection -) 200 mg IVPB DAILY [facility] Last Admin: 08/23/18 10:52 Dose: 200 mg started on Keppra . per MR PMHX untreated HTN , withdrawal seizures Objective: wnwd , resting comfortably in bed , mild distress heent : NCAT eomi mucosae moist resp : no distress noted , no accesory mm use ext : no c/c/e , + rosa isela UE moderate tremors Neuro : AAO x 3 CBC, BMP 08/23/18 10:26 08/23/18 10:26 Vital Signs - 24 hr 08/22/18 08/23/18 08/23/18 21:40 06:45 14:00 Temperature 97.6 F 98.4 F 97.9 F Pulse Rate 93 H Pulse Rate [ 77 72 Left Radial] Respiratory 20 17 Rate Blood Pressure 126/73 Blood Pressure 121/72 139/78 [Left Arm] O2 Sat by Pulse 98 100 98 Oximetry (%) 08/23/18 08/23/18 08/23/18 16:00 16:25 16:30 Temperature 98.2 F Pulse Rate 69 Pulse Rate [ Left Radial] Respiratory 20 Rate Blood Pressure 126/74 Blood Pressure [Left Arm] O2 Sat by Pulse 97 97 Oximetry (%) 08/23/18 18:00 Temperature 98.2 F Pulse Rate 69 Pulse Rate [ Left Radial] Respiratory 20 Rate Blood Pressure 126/74 Blood Pressure [Left Arm] O2 Sat by Pulse Oximetry (%) Assessment: Alcohol dependence with withdrawal. Plan: continue current Lorazepam pt expressed interest in rehab after detox completion.
[2018-08-23] MEDS ORDERED: chlordiazePOXIDE HCL 25 MG CAPSULE PO SCH (21:00)
[2018-08-23] MEDS: levETIRAcetam 250 MG TABLET (FP) PO SCH (21:29)
[2018-08-24 04:13] LABS: SERUM IRON SATURATION 73 % (15-55); TOTAL IRON BINDING CAPACITY 402 ug/dL (250-450); UIBC 109 ug/dL (111-343)
[2018-08-24] MEDS: LORazepam 0.5 MG TABLET PO SCH ×4 (06:21→22:31)
[2018-08-24 07:23] LABS: HEMATOCRIT 32.5 % (35.4-49); HEMOGLOBIN 10.6 GM/dL (11.7-16.9); MCH 29.1 pg (25.7-33.7); MCHC 32.4 g/dl (32.0-35.9); MEAN CELL VOLUME 89.6 fl (80-96); MEAN PLT VOLUME 8.4 fl (7.5-11.1); PLATELET COUNT 143 K/MM3 (134-434); RBC 3.63 M/mm3 (4.00-5.60)
[2018-08-24 07:35] LABS: ALBUMIN 3.3 g/dl (3.4-5.0); ALK PHOS 68 U/L (45-117); ANION GAP 7 MMOL/L (8-16); BILIRUBIN,TOTAL 0.6 mg/dL (0.2-1); BLOOD UREA NITROGEN 9 mg/dL (7-18); CALCIUM 8.2 mg/dL (8.5-10.1); CHLORIDE 106 mmol/L (98-107); CO2 25 mmol/L (21-32); CREATININE 0.7 mg/dL (0.55-1.3); GLUCOSE,RANDOM 88 mg/dL (74-106); MAGNESIUM 2.4 mg/dL (1.8-2.4); PHOSPHOROUS 3.1 mg/dL (2.5-4.9); POTASSIUM 3.8 mmol/L (3.5-5.1); SGOT/AST 78 U/L (15-37); SGPT/ALT 58 U/L (13-61); SODIUM 138 mmol/L (136-145); TOT PROT 6.4 g/dl (6.4-8.2)
[2018-08-24] MEDS: SODIUM CHLORIDE 1,000 ML IV SCH (07:45)
[2018-08-24] MEDS: levETIRAcetam 250 MG TABLET (FP) PO SCH ×2 (10:13→22:31)
[2018-08-24] MEDS: PANTOPRAZOLE 20 MG TABLET (FP) PO SCH (10:14)
[2018-08-24] MEDS: FOLIC ACID 1 MG TABLET (FP) PO SCH (10:15)
[2018-08-24] MEDS: ASPIRIN 81 MG CHEWABLE TABLETS PO SCH (10:15)
[2018-08-24] MEDS: ENOXAPARIN NA (PORCINE) 40 MG/0.4 ML DISP.SYRIN SQ SCH (10:15)
[2018-08-24] MEDS: THIAMINE HCL 200 MG/2 ML VIAL IVPB SCH (10:16)
--- NOTE | 2018-08-24 11:24 | PN ---
Teaching Attending Note Name of Resident: Aylin Ordaz ATTENDING PHYSICIAN STATEMENT I saw and evaluated the patient. I reviewed the resident's note and discussed the case with the resident. I agree with the resident's findings and plan as documented. SUBJECTIVE: No fever or chills. has no pain. feels better. denies any numbness or tingling. OBJECTIVE: NAD, Awake, alert oriented x 3. CV: RRR, no MRG lungs: CTAB Ext : no edema Abd: soft, NT, Nd , NLBS . neuro: EOMI, round equal pupils, reactive to light , no facial droop today. nl facial sensation. no nystagmus strength 5/5 in upper and lower ext proximally and distally. reflexes 2+ knee jerk and biceps b/l. nl sensation to light touch b/l . ASSESSMENT AND PLAN: 37 y/o male with h/o ETOH abuse, untreated HTN and withdrawal seizures who presented with dizziness ( light headedness and syncope ) . 1- R lower facial droop: resolved today. rest of Neuro exam is normal - MRI is still pending - cont ASa - cont keppra - appreciate neuro Recs - Echo and CUS done and reviewed. mild MR, and TR 2- ETOH WD. Cont ativan protocol thiamine and folate 3- Alcoholic hepatitis :LFTs cont to improve 4- Hypoglycemia: likely due to alcohol use and poor nutrition. resolved. 5- Syncope: likely due to alcohol intoxication Vs WD seizure. tele reviewed , no events. cont keppra dispo: discharge pending MRI results . will arrange for transfer to [facility] after MRI ASSESSMENT AND PLAN:
--- NOTE | 2018-08-24 13:11 | PN ---
Physical Exam: SUBJECTIVE: Patient seen and examined at bedside- no acute events overnight' patient still tremulous however has no complaints denies any CP/SOB/N;/V speech and facial droop improved OBJECTIVE: Vital Signs Period Temp Pulse Resp BP Sys/Antoine Pulse Ox Last 24 Hr 97.9 F-98.9 F 57-104 17-30 113-139/64-81 97-99 GENERAL: The patient is awake, alert, and fully oriented, in no acute distress. EYES: PEERLA: EOMI; no scleral cterus. NECK: no JVD: no lymphadenopathy LUNGS: CTA B/L; no rales, rhonchi or wheezing. HEART: Regular rate and rhythm, S1, S2 without murmur, rub or gallop. ABDOMEN: Soft, nontender, nondistended, normoactive bowel sounds, no guarding, no rebound, no hepatosplenomegaly, no masses. EXTREMITIES: 2+ pulses, warm, well-perfused, no edema. upper extremities tremulous B/L NEUROLOGICAL: Cranial nerves II through XII grossly intact. Normal speech, right facial droop improved; 5/5 strength B/L UE and LE PSYCH: Normal mood, normal affect. SKIN: Warm, dry, normal turgor, no rashes or lesions noted Laboratory Results - last 24 hr 08/23/18 08/23/18 08/23/18 05:52 15:08 17:20 WBC RBC Hgb Hct MCV MCH MCHC RDW Plt Count MPV Sodium Potassium Chloride Carbon Dioxide Anion Gap BUN Creatinine Creat Clearance w eGFR POC Glucometer 124 95 Random Glucose Calcium Phosphorus Magnesium Iron 293 H TIBC 402 Iron Saturation 73 H Total Bilirubin AST ALT Alkaline Phosphatase Total Protein Albumin 08/23/18 08/24/18 08/24/18 22:34 05:30 05:30 WBC 4.0 RBC 3.63 L Hgb 10.6 L Hct 32.5 L MCV 89.6 MCH 29.1 MCHC 32.4 RDW 17.0 H Plt Count 143 MPV 8.4 Sodium 138 Potassium 3.8 Chloride 106 Carbon Dioxide 25 Anion Gap 7 L BUN 9 Creatinine 0.7 Creat Clearance w eGFR 125.55 POC Glucometer 100 Random Glucose 88 Calcium 8.2 L Phosphorus 3.1 Magnesium 2.4 Iron TIBC Iron Saturation Total Bilirubin 0.6 AST 78 H ALT 58 Alkaline Phosphatase 68 Total Protein 6.4 Albumin 3.3 L 08/24/18 08/24/18 06:20 11:20 WBC RBC Hgb Hct MCV MCH MCHC RDW Plt Count MPV Sodium Potassium Chloride Carbon Dioxide Anion Gap BUN Creatinine Creat Clearance w eGFR POC Glucometer 101 106 Random Glucose Calcium Phosphorus Magnesium Iron TIBC Iron Saturation Total Bilirubin AST ALT Alkaline Phosphatase Total Protein Albumin Active Medications Generic Name Dose Route Start Last Admin Trade Name Freq PRN Reason Stop Dose Admin Aspirin 81 mg 08/23/18 13:45 08/24/18 10:15 Asa - PO 81 mg DAILY CARLOS Administration Enoxaparin Sodium 40 mg 08/23/18 10:00 08/24/18 10:15 Lovenox - SQ 40 mg DAILY CARLOS Administration Folic Acid 1 mg 08/23/18 10:00 08/24/18 10:15 Folic Acid - PO 1 mg DAILY CARLOS Administration Sodium Chloride 1,000 mls @ 125 mls/hr 08/23/18 05:30 08/23/18 06:30 Normal Saline - IV 125 mls/hr ASDIR CARLOS Administration Levetiracetam 250 mg 08/23/18 22:00 08/24/18 10:13 Keppra - PO 250 mg BID CARLOS Administration Lorazepam 0.5 mg 08/25/18 05:00 Ativan - PO 08/26/18 05:01 Q6H CARLOS Lorazepam 0.5 mg 08/25/18 05:00 Ativan - PO 08/26/18 05:00 Q4H PRN Symptoms of Withdrawal Lorazepam 1 mg 08/24/18 05:00 08/24/18 10:16 Ativan - PO 08/24/18 23:01 1 mg 0500,1100,1700,2300 CARLOS Administration Lorazepam 1 mg 08/23/18 05:46 Ativan - PO 08/25/18 05:00 Q4H PRN Symptoms of Withdrawal Pantoprazole Sodium 20 mg 08/23/18 10:00 08/24/18 10:14 Protonix - PO 20 mg DAILY CARLOS Administration Thiamine HCl 200 mg 08/23/18 10:00 08/24/18 10:16 Vitamin B1 Injection - IVPB 200 mg DAILY CARLOS Administration ASSESSMENT/PLAN: 37 y.o male with no PMH presented to the ED with complaints of dizziness/LOC admitted for alcohol abuse and syncope workup as this was his second episode in the last 3 months #Syncope head CT negative for any acute pathology echo normal dopplers normal orthostatic vitals NS @100 fall precautions #New onset facial droop currently improving patient no longer dysarthric neuro saw patient yesterday; started patient on keppra 250 BID brain MRI pending #Alcohol abuse currently CIWA of 4 patient has had alcohol withdrawal seizures in past ativan protocol, monitor CIWA and withdrawal symptoms patient will go to [facility] once MRI is back #Transaminitis alcoholic picture AST: ALT 239:97 #Anemia likely due to chronic alcohol use f/u iron studies F/E/N NS @100 monitor electrolytes regualr diet Problem List - Problems (1) Syncope Code(s): R55 - SYNCOPE AND COLLAPSE (2) Anemia Code(s): D64.9 - ANEMIA, UNSPECIFIED (3) Alcohol withdrawal Code(s): F10.239 - ALCOHOL DEPENDENCE WITH WITHDRAWAL, UNSPECIFIED Visit type - Emergency Visit Emergency Visit: Yes ED Registration Date: 08/23/18 Care time: The patient presented to the Emergency Department on the above date and was hospitalized for further evaluation of their emergent condition. - New Patient This patient is new to me today: No - Critical Care Critical Care patient: No
[2018-08-24] MEDS ORDERED: chlordiazePOXIDE 5 MG CAPSULE PO SCH (21:00)
[2018-08-25] MEDS: SODIUM CHLORIDE 1,000 ML IV SCH ×2 (00:35→18:30)
[2018-08-25] MEDS ORDERED: LORazepam 0.5 MG TABLET PO PRN ×2 (05:00→15:57)
[2018-08-25] MEDS: LORazepam 0.5 MG TABLET PO SCH ×4 (05:40→22:32)
[2018-08-25 06:46] LABS: HEMATOCRIT 33.1 % (35.4-49); HEMOGLOBIN 10.9 GM/dL (11.7-16.9); MCH 29.5 pg (25.7-33.7); MCHC 33.1 g/dl (32.0-35.9); MEAN CELL VOLUME 89.2 fl (80-96); MEAN PLT VOLUME 8.3 fl (7.5-11.1); PLATELET COUNT 152 K/MM3 (134-434); RBC 3.71 M/mm3 (4.00-5.60); RDW 17.1 % (11.9-15.9); WHITE BLOOD COUNT 4.1 K/mm3 (4.0-10.0)
[2018-08-25 07:03] LABS: ANION GAP 6 MMOL/L (8-16); BLOOD UREA NITROGEN 8 mg/dL (7-18); CALCIUM 8.6 mg/dL (8.5-10.1); CHLORIDE 104 mmol/L (98-107); CO2 26 mmol/L (21-32); CREATININE 0.7 mg/dL (0.55-1.3); GLUCOSE,RANDOM 89 mg/dL (74-106); PHOSPHOROUS 3.9 mg/dL (2.5-4.9); POTASSIUM 3.6 mmol/L (3.5-5.1); SODIUM 137 mmol/L (136-145)
[2018-08-25] MEDS: PANTOPRAZOLE 20 MG TABLET (FP) PO SCH (11:02)
[2018-08-25] MEDS: ENOXAPARIN NA (PORCINE) 40 MG/0.4 ML DISP.SYRIN SQ SCH (11:02)
[2018-08-25] MEDS: ASPIRIN 81 MG CHEWABLE TABLETS PO SCH (11:02)
[2018-08-25] MEDS: levETIRAcetam 250 MG TABLET (FP) PO SCH ×2 (11:02→22:32)
[2018-08-25] MEDS: FOLIC ACID 1 MG TABLET (FP) PO SCH (11:02)
[2018-08-25] MEDS: THIAMINE HCL 200 MG/2 ML VIAL IVPB SCH (11:03)
--- NOTE | 2018-08-25 16:01 | PN ---
Progress Note (short form) - Note Progress Note: Subjective: official court interpreter phone #[phone] used No fever or chills. has no pain. wants to go home. no numbness or tingling Objective: Vital Signs: Last Vital Signs Temp Pulse Resp BP Pulse Ox 99.1 F 86 20 118/70 99 08/25/18 14:00 08/25/18 14:00 08/25/18 14:00 08/25/18 14:00 08/24/18 21:00 Laboratory Results - last 24 hr 08/24/18 08/24/18 08/24/18 05:30 16:45 22:36 WBC RBC Hgb Hct MCV MCH MCHC RDW Plt Count MPV Sodium Potassium Chloride Carbon Dioxide Anion Gap BUN Creatinine Creat Clearance w eGFR POC Glucometer 115 111 Random Glucose Calcium Phosphorus Magnesium Prolactin 35.8 H 08/25/18 08/25/18 08/25/18 05:30 05:30 05:43 WBC 4.1 RBC 3.71 L Hgb 10.9 L Hct 33.1 L MCV 89.2 MCH 29.5 MCHC 33.1 RDW 17.1 H Plt Count 152 MPV 8.3 Sodium 137 Potassium 3.6 Chloride 104 Carbon Dioxide 26 Anion Gap 6 L BUN 8 Creatinine 0.7 Creat Clearance w eGFR 125.55 POC Glucometer 95 Random Glucose 89 Calcium 8.6 Phosphorus 3.9 Magnesium 2.0 Prolactin 08/25/18 11:54 WBC RBC Hgb Hct MCV MCH MCHC RDW Plt Count MPV Sodium Potassium Chloride Carbon Dioxide Anion Gap BUN Creatinine Creat Clearance w eGFR POC Glucometer 92 Random Glucose Calcium Phosphorus Magnesium Prolactin Physical Exam: NAD CV: RRR, no MRG lungs: CTAB Ext: no edema. minimal tremor Neuro: EOMI, round equal pupils, reactive to light , minimal R lower facial droop today. nl facial sensation. no nystagmus strength 5/5 in upper and lower ext proximally and distally. reflexes 2+ knee jerk and biceps b/l. nl sensation to light touch b/l . ASSESSMENT AND PLAN: 37 y/o male with h/o ETOH abuse, untreated HTN and withdrawal seizures who presented with dizziness ( light headedness and syncope ) . 1- R lower facial droop: rest of Neuro exam is normal - MRI reviewed. - cont ASa - cont keppra 2- ETOH WD. Cont ativan protocol thiamine and folate 3- Alcoholic hepatitis :LFTs cont to improve 4- Hypoglycemia: likely due to alcohol use and poor nutrition. resolved. 5- Syncope: likely due to alcohol intoxication Vs WD seizure. tele reviewed , no events. dc tele cont leonora dispo: Tx to med surg pt refused transfer to [facility]. He will fiish his detox here. He understands he is not ready for dc today Visit type - Emergency Visit Emergency Visit: Yes ED Registration Date: 08/23/18 Care time: The patient presented to the Emergency Department on the above date and was hospitalized for further evaluation of their emergent condition. - New Patient This patient is new to me today: No - Critical Care Critical Care patient: No
[2018-08-25] MEDS ORDERED: chlordiazePOXIDE HCL 10 MG CAPSULE PO SCH (21:00)
[2018-08-25] MEDS ORDERED: chlordiazePOXIDE HCL 10 MG CAPSULE PO PRN (21:00)
[2018-08-26] MEDS: LORazepam 0.5 MG TABLET PO SCH ×4 (05:17→20:13)
[2018-08-26] MEDS ORDERED: LORazepam 0.5 MG TABLET PO PRN (07:29)
[2018-08-26] MEDS ORDERED: ASPIRIN 81 MG CHEWABLE TABLETS PO SCH (10:00)
[2018-08-26] MEDS ORDERED: METHYL SALICYLATE/MENTHOL OINT 30 GM TUBE TP SCH (10:00)
[2018-08-26] MEDS ORDERED: ENOXAPARIN NA (PORCINE) 40 MG/0.4 ML DISP.SYRIN SQ SCH (10:00)
[2018-08-26] MEDS ORDERED: THIAMINE HCL 200 MG/2 ML VIAL IVPB SCH (10:00)
[2018-08-26] MEDS: FOLIC ACID 1 MG TABLET (FP) PO SCH (11:00)
[2018-08-26] MEDS: levETIRAcetam 250 MG TABLET (FP) PO SCH ×2 (11:00→21:04)
[2018-08-26] MEDS: PANTOPRAZOLE 20 MG TABLET (FP) PO SCH (11:00)
[2018-08-26] MEDS: SODIUM CHLORIDE 1,000 ML IV SCH ×2 (11:08→15:55)
--- NOTE | 2018-08-26 13:50 | PN ---
Physical Exam: SUBJECTIVE: Patient seen and examined this am at bedside. No acute overnight events as per nursing staff. Patient was ambulating in his room and says he feels much better. Mentions he has had this chronic facial droop since childhood. Denies fevers, chills, nausea, vomiting, palpitations, chest pain, SOB. OBJECTIVE: Vital Signs Period Temp Pulse Resp BP Sys/Antoine Pulse Ox Last 24 Hr 98.1 F-99.1 F 73-97 20-20 118-127/70-84 99-99 GENERAL: The patient is awake, alert, and fully oriented, in no acute distress. EYES: PERRL, EOMI ENT: Moist mucous membranes. NECK: No JVD LUNGS: Clear to auscultation bilaterally, no wheezes, no crackles HEART: Regular rate and rhythm, S1, S2 without murmur ABDOMEN: Soft, nontender, nondistended, + bowel sounds, no guarding EXTREMITIES: No edema. Upper extremity Tremors worse with the outstreched hands NEUROLOGICAL: Cranial nerves II through XII grossly intact, Chronic Right facial droop. Normal speech. PSYCH: Normal mood, normal affect. SKIN: Warm, dry Laboratory Results - last 24 hr 08/25/18 08/25/18 08/26/18 17:07 22:33 05:20 POC Glucometer 105 101 100 Active Medications Aspirin (Asa -) 81 mg PO DAILY [facility] Last Admin: 08/26/18 11:00 Dose: 81 mg Enoxaparin Sodium (Lovenox -) 40 mg SQ DAILY [facility] Last Admin: 08/26/18 10:59 Dose: 40 mg Folic Acid (Folic Acid -) 1 mg PO DAILY [facility] Last Admin: 08/26/18 11:00 Dose: 1 mg Sodium Chloride (Normal Saline -) 1,000 mls @ 125 mls/hr IV ASDIR [facility] Last Admin: 08/26/18 11:08 Dose: 125 mls/hr Levetiracetam (Keppra -) 250 mg PO BID [facility] Last Admin: 08/26/18 11:00 Dose: 250 mg Lorazepam (Ativan -) 0.5 mg PO Q6H [facility] Stop: 08/27/18 01:31 Last Admin: 08/26/18 08:00 Dose: 0.5 mg Lorazepam (Ativan -) 0.5 mg PO Q6H PRN PRN Reason: WITHDRAWAL(CONT SUBST) Pantoprazole Sodium (Protonix -) 20 mg PO DAILY [facility] Last Admin: 08/26/18 11:00 Dose: 20 mg Thiamine HCl (Vitamin B1 Injection -) 200 mg IVPB DAILY [facility] Last Admin: 08/26/18 10:35 Dose: 200 mg IMAGING: -CT Brain without IV contrast: Moderate volume loss that is more than expected for the patient's age, of uncertain etiology. No acute intracranial pathology is identified. Mild soft tissue swelling of the scalp over the right posterior parietal/occipital junction -CT Brain without IV contrast: No significant interval change or gross acute intracranial pathology is identified. -MRI Brain without contrast: Moderate volume loss and ventricular dilatation, of uncertain etiology. Left basal ganglia chronic lacunar infarct. No mass lesion, acute infarct or intracranial hemorrhage are identified. -CT C-spine without IV contrast: The alignment is satisfactory. No gross fracture or subluxation is seen. No jumped facets are identified. C2-C3 minimal right paracentral and lateral posterior spur formation slightly narrowing the right foramen. C3-C4 moderate right paracentral spur formation and right uncovertebral hypertrophy moderately narrowing the right foramen and likely impinging right C4 nerve root. Filling defects in the left external auditory canal likely representing debris. Please correlate with physical exam. -CXR: No acute chest pathology. -Carotid Doppler: Unremarkable examination without evidence of hemodynamically significant stenosis, bilaterally. -ECHO: LVEF is normal, LV Wall motion is normal, Trace TR and MR -EKG: NSR, VR 71, QTC 460 ASSESSMENT/PLAN: 37 y/o M with PMH of Alcoholism, Withdrawal seizures, HTN (untreated) presented to the ED with complaints of dizziness/LOC, and was admitted for alcohol abuse and syncope. #Syncope -Imaging noted above -Orthostatic vitals -COntinue NS @ 125 mls/hr -Fall precautions, Seizure precautions #Chronic facial droop -Patient previously dysarthric, now improved -Continue Levetiracetam 250mg BID -Brain MRI noted above -Prolactin level elevated--35.8 -Dr. Lyons consulted, appreciate rec's -D/C ASA #Alcoholism with hx of withdrawal seizures -CIWA this AM 4 -Lorazepam protocol, monitor CIWA score and withdrawal symptoms -Detox (Dr. Bolanos) Consulted, appreciate rec's -Folic Acid 1 mg PO DAILY, Thiamine 200 mg IVPB daily #Transaminitis in the setting of Alcohol abuse -Improved -Continue to monitor, will consider Hep panel and further imaging if begins to rise #Anemia -In the setting of chronic alcohol use, without macrocytosis -Iron studies noted #Hyponatremia, Resolved #FEN -NS @ 125 -monitor electrolytes -regular diet #PPx -DVT: Enoxaparin -GI: Pantoprazole Dispo: D/C Tmrw pending completion of Ativan protocol Visit type - Emergency Visit Emergency Visit: Yes ED Registration Date: 08/23/18 Care time: The patient presented to the Emergency Department on the above date and was hospitalized for further evaluation of their emergent condition. - New Patient This patient is new to me today: Yes Date on this admission: 08/26/18 - Critical Care Critical Care patient: No
--- NOTE | 2018-08-26 16:24 | PN ---
Teaching Attending Note Name of Resident: Natasha Holder ATTENDING PHYSICIAN STATEMENT I saw and evaluated the patient. I reviewed the resident's note and discussed the case with the resident. I agree with the resident's findings and plan as documented. SUBJECTIVE: no fever or chills . No HENRY ,feels much better OBJECTIVE: NAD CV: RRR, no MRG lungs: CTAB Ext: no edema. minimal tremor Neuro: EOMI, round equal pupils, reactive to light , R lower facial droop today. nl facial sensation. no nystagmus strength 5/5 in upper and lower ext proximally and distally. reflexes 2+ knee jerk and biceps b/l. nl sensation to light touch b/l . ASSESSMENT AND PLAN: 37 y/o male with h/o ETOH abuse, untreated HTN and withdrawal seizures who presented with dizziness ( light headedness and syncope ) . 1- R lower facial droop: now patient tells the student that he had the R lower facial droop for years. - cont ASa - cont keppra 2- ETOH WD. Cont ativan protocol . last dose tonight thiamine and folate 3- Alcoholic hepatitis :LFTs improved 4- Hypoglycemia: likely due to alcohol use and poor nutrition. resolved. 5- Syncope: likely due to alcohol intoxication Vs WD seizure. off tele dispo: transferred to Med-surg yesterday. dc home tomorrow after ativan protocol is done
[2018-08-27] MEDS: LORazepam 0.5 MG TABLET PO SCH (01:46)
[2018-08-27 05:35] VITALS: TEMP 98.4
[2018-08-27 08:30] VITALS: BP 130/70; PULSE 88
[2018-08-27] MEDS: FOLIC ACID 1 MG TABLET (FP) PO SCH (08:38)
[2018-08-27] MEDS: PANTOPRAZOLE 20 MG TABLET (FP) PO SCH (08:38)
[2018-08-27] MEDS: levETIRAcetam 250 MG TABLET (FP) PO SCH (08:38)
--- NOTE | 2018-08-27 13:15 | DS ---
Physical Exam: SUBJECTIVE: Patient seen and examined this am at bedside. No acute overnight events as per nursing staff. No new complaints. Denies fevers, chills, nausea, vomiting, palpitations, chest pain, SOB. OBJECTIVE: Vital Signs Period Temp Pulse Resp BP Sys/Antoine Pulse Ox Last 24 Hr 97.9 F-98.4 F 66-88 18-21 112-142/70-94 99 PHYSICAL EXAM GENERAL: The patient is awake, alert, and fully oriented, in no acute distress. EYES: PERRL, EOMI ENT: Moist mucous membranes. NECK: No JVD LUNGS: Clear to auscultation bilaterally, no wheezes, no crackles HEART: Regular rate and rhythm, S1, S2 without murmur ABDOMEN: Soft, nontender, nondistended, + bowel sounds, no guarding EXTREMITIES: No edema. Upper extremity Tremors improving but persistent NEUROLOGICAL: Cranial nerves II through XII grossly intact, Chronic Right facial droop. Normal speech. PSYCH: Normal mood, normal affect. SKIN: Warm, dry LABS Laboratory Results - last 24 hr 08/26/18 08/26/18 08/27/18 19:49 21:10 05:24 POC Glucometer 143 134 92 IMAGING: -CT Brain without IV contrast: Moderate volume loss that is more than expected for the patient's age, of uncertain etiology. No acute intracranial pathology is identified. Mild soft tissue swelling of the scalp over the right posterior parietal/occipital junction -CT Brain without IV contrast: No significant interval change or gross acute intracranial pathology is identified. -MRI Brain without contrast: Moderate volume loss and ventricular dilatation, of uncertain etiology. Left basal ganglia chronic lacunar infarct. No mass lesion, acute infarct or intracranial hemorrhage are identified. -CT C-spine without IV contrast: The alignment is satisfactory. No gross fracture or subluxation is seen. No jumped facets are identified. C2-C3 minimal right paracentral and lateral posterior spur formation slightly narrowing the right foramen. C3-C4 moderate right paracentral spur formation and right uncovertebral hypertrophy moderately narrowing the right foramen and likely impinging right C4 nerve root. Filling defects in the left external auditory canal likely representing debris. Please correlate with physical exam. -CXR: No acute chest pathology. -Carotid Doppler: Unremarkable examination without evidence of hemodynamically significant stenosis, bilaterally. -ECHO: LVEF is normal, LV Wall motion is normal, Trace TR and MR -EKG: NSR, VR 71, QTC 460 HOSPITAL COURSE: Date of Admission:08/23/18 Date of Discharge: 08/27/18 37 y/o M with PMH of Alcoholism, Withdrawal seizures, HTN (untreated) presented to the ED with complaints of dizziness/LOC, and was admitted for alcohol abuse and syncope. Imaging was done as noted above. Patient received hydration and responded appropriately with no further syncopal episodes. Neurology was consulted given concerns of dysarthria and facial droop. Brain MRI was done and patient was started on Keppra. His dysarthria resolved and his chronic facial droop remained at baseline. Patient completed a Lorazepam protocol for Alcohol abuse; Detox was consulted and patient additionally was started on Folic acid and thiamine. His transaminitis improved and Hyponatremia resolved. Patient was discharged home with strict instructions for medication adherence, follow up and alcohol cessation. Minutes to complete discharge: 36 Discharge Summary Reason For Visit: ALCOHOL WITHDRAWAL SYNDROME Condition: Improved - Instructions Diet, Activity, Other Instructions: You came to the hospital after passing out in addition to withdrawing from alcohol. We started you on a detox protocol for your alcohol withdrawal. While you were here you developed a mild right sided facial droop in addition to having some trouble speaking. We did imaging of your head which was normal and you were seen by a neurologist who started you on a medication to prevent you from having seizures in the future. Medication Changes: 1. Please take Keppra 250mg twice a day Follow up with the following physicians: 1. PCP in one week--Dr. Cueva 2. Neurologist in one week--Dr. Lyons Please continue to monitor your diet as you need to intake less Fats and cholesterol. You need to be evaluated for the need of cholesterol medication in the future---You will need to check your cholesterol level again. Please refrain from excessive alcohol use. You have to stop drinking otherwise the medications will interfere with your liver Continue to take a multivitamin every day. Continue all your other medications as prescribed Please return to the ER if you have any signs or symptoms of chest pain, shortness of breath, uncontrollable fever, chills, nausea, vomiting, numbness, tingling, or weakness in any part of your body, changes in vision, slurred speech, changes in speech/gait, or dizziness. Please return to the ER if symptoms persist, worsen, or new symptoms arise. Referrals: Mike Cueva MD [Staff Physician] - 1 Week Rossy Lyons MD [Staff Physician] - 1 Week Disposition: HOME - Home Medications Comprehensive Discharge Medication List: Ambulatory Orders levETIRAcetam [Keppra -] 250 mg PO BID #60 tablet 08/27/18 This patient is new to me today: Yes Date on this admission: 08/27/18 Emergency Visit: No Critical Care patient: No - Discharge Referral Referred to [facility] Med P.C.: No
--- NOTE | 2018-08-27 18:36 | PN ---
Teaching Attending Note Name of Resident: Natasha Holder ATTENDING PHYSICIAN STATEMENT I saw and evaluated the patient. I reviewed the resident's note and discussed the case with the resident. I agree with the resident's findings and plan as documented. SUBJECTIVE: No fever or chills. no pain or weakness . admits to me that asymmetry in his face goes back to when he was very young . he was worked up for it inpast and n colleenason was found OBJECTIVE: NAD CV: RRR, no MRG lungs: CTAB Ext: no edema. minimal tremor Neuro: EOMI, round equal pupils, reactive to light , R lower facial droop today. nl facial sensation. no nystagmus strength 5/5 in upper and lower ext proximally and distally. reflexes 2+ knee jerk and biceps b/l. nl sensation to light touch b/l . ASSESSMENT AND PLAN: 37 y/o male with h/o ETOH abuse, untreated HTN and withdrawal seizures who presented with dizziness ( light headedness and syncope ) . 1- R lower facial droop: old . no signs of stroke on MRI - No need for asa since ther eis no infarct and no obvious reason. patient is alcoholic and being on Aspirin is risky without a convincing reason - cont keppra 2- ETOH WD. finished detox 3- Alcoholic hepatitis :LFTs improved 4- Hypoglycemia: likely due to alcohol use and poor nutrition. resolved. 5- Syncope: likely due to alcohol intoxication Vs WD seizure. dispo: DC home today
== END 2018-08-27 08:50 | disposition home or self-care (01) | DRG 775 ==
LOC: JER 21:23 → JERBED 08-23 01:57 → J4W 08-23 15:39
PROVIDERS: ADMIT Internal Medicine; ATTEND Internal Medicine
DX: F10.230 Alcohol dependence with withdrawal, uncomplicated (principal); R17 Unspecified jaundice; E16.2 Hypoglycemia, unspecified; R55 Syncope and collapse; E87.1 Hypo-osmolality and hyponatremia; D64.9 Anemia, unspecified; R74.0 Nonspecific elevation of levels of transaminase and lactic acid dehydrogenase [LDH]; F17.210 Nicotine dependence, cigarettes, uncomplicated; R47.1 Dysarthria and anarthria; R29.810 Facial weakness; F10.220 Alcohol dependence with intoxication, uncomplicated; R29.702 NIHSS score 2
CPT/HCPCS: 36415; 70450-TC; 70551-TC; 71045-TC-FY; 72125-TC; 80048; 80053; 80061; 80307; 81003; 82550; 82553; 82607; 82728; 82746; 82962; 83036; 83540; 83550; 83721; 83735; 84100; 84146; 84484; 85025; 85027; 85610; 85730; 90688; 90732; 93005; 93010; 93306-TC; 93880-TC; 99284-25; G0008; G0009; J7030